=== PATIENT | male | born 1970 | race Caucasian/White ===

== ENCOUNTER 2024-07-28 17:20 | Inpatient (IN) | payer MEDICARE, OTHER ==
[~2024-07-28] VITALS: Ht 172.7 cm; Wt 63.0 kg
[2024-07-28 19:26] LABS: BASOPHILS # (AUTO) 0.1 K/UL (0.0-0.2); BASOPHILS % (AUTO) 0.8 % (0.0-2.0); EOSINOPHILS % (AUTO) 0.5 % (0.0-7.0); HEMATOCRIT 30.1 % (36.7-47.1); HEMOGLOBIN 10.1 g/dL (12.5-16.3); LYMPHOCYTES # (AUTO) 1.7 K/uL (0.8-4.8); MEAN CORPUSCULAR HGB CONC 34 g/dL (32.5-36.3); MEAN CORPUSCULAR VOLUME 89.6 fL (73.0-96.2); MONOCYTES # (AUTO) 0.9 K/uL (0.1-1.30); MONOCYTES % (AUTO) 10.5 % (0.0-11.0); NEUTROPHILS # (AUTO) 5.5 K/uL (1.8-8.9); NEUTROPHILS % (AUTO) 67.2 % (38.5-71.5); PLATELET COUNT (AUTO) 365 K/uL (152-348); RED BLOOD CELL COUNT(AUTO) 3.36 MIL/uL (4.06-5.63); RED CELL DISTRIBUTION WIDTH 16.8 % (12.1-16.2); WHITE BLOOD COUNT (AUTO) 8.1 K/uL (3.6-10.2)
[2024-07-28] MEDS ORDERED: HALOPERIDOL LACTATE 5 MG/1 ML VIAL ONE (19:31)
[2024-07-28 19:32] LABS: *BILIRUBIN,URIN NEGATIVE (NEGATIVE); *BLOOD, URINE NEGATIVE (NEGATIVE); *CLARITY,URINE CLEAR (CLEAR); *COLOR,URINE YELLOW (YELLOW); *KETONES,URINE NEGATIVE (NEGATIVE); *PROTEIN,URINE NEGATIVE (NEGATIVE); *UROBILINOGEN,URINE 0.2 E.U./dl (NORMAL); LEUKOCYTE ESTERASE ,URINE NEGATIVE (NEGATIVE); NITRITE, URINE NEGATIVE (NEGATIVE); PH,URINE 7.5 (5.0-8.0); UGLUCOSE NEGATIVE (NEGATIVE)
[2024-07-28] MEDS ORDERED: LORAZEPAM 2 MG/1 ML VIAL ONE (19:32)
[2024-07-28 19:34] LABS: DIFFERENTIAL COMMENT 1
[2024-07-28 19:36] LABS: CARBON DIOXIDE 30 mmol/L (21-32); CHLORIDE 98 mmol/L (98-107); CREATININE 0.8 mg/dL (0.6-1.3); GLUCOSE 154 mg/dL (74-106); POTASSIUM 4.5 mmol/L (3.5-5.1); SODIUM SERUM 134 mmol/L (136-145); UREA NITROGEN, BLOOD 13 mg/dL (7-18)
[2024-07-28] MEDS: HALOPERIDOL LACTATE 5 MG/1 ML VIAL IM ONE (19:37)
[2024-07-28] MEDS: LORAZEPAM 2 MG/1 ML VIAL IM ONE (19:37)
[2024-07-28 19:45] LABS: ALANINE AMINOTRANSFERASE 10 U/L (16-63); ALBUMIN 2.9 g/dL (3.4-5.0); ALKALINE PHOSPHATASE 114 U/L (50-136); ASPARTATE AMINOTRANSFERASE 8 U/L (15-37); BILIRUBIN,DIRECT 0.1 mg/dL (0.0-0.2); BILIRUBIN,TOTAL 0.2 mg/dL (0.2-1.0); TOTAL PROTEIN, SERUM 7.1 g/dL (6.4-8.2)
[2024-07-28] MEDS ORDERED: REMEDY ESSENTIAL ZINC PASTE 113 GM TP PRN (21:00)
[2024-07-28] MEDS ORDERED: ACETAMINOPHEN 325 MG TABLET PO PRN (21:00)
[2024-07-28] MEDS ORDERED: MAGNESIUM HYDROXIDE 30 ML LIQUID UDC PO PRN (21:00)
[2024-07-28] MEDS ORDERED: DIATR MEGLU/DIATRIZOATE SODIUM 30 ML BOTTLE ONE (22:04)
[2024-07-28] MEDS: ENOXAPARIN SODIUM 40 MG/0.4 ML DISP.SYRIN SQ SCH (23:08)
[2024-07-28] MEDS ORDERED: ENOXAPARIN SODIUM 40 MG/0.4 ML DISP.SYRIN SQ ONE (23:08)
[2024-07-28] MEDS: ASPIRIN 300 MG RECTAL SUPP RC ONE (23:26)
[2024-07-29] MEDS ORDERED: ASPIRIN 81 MG TAB.CHEW ONE (00:25)
[2024-07-29] MEDS: IV NS 1000 ML 1,000 ML IV PRN (00:30)
[2024-07-29] MEDS: ASPIRIN 81 MG TAB.CHEW PO ONE (00:30)
[2024-07-29 05:42] LABS: BASOPHILS # (AUTO) 0.1 K/UL (0.0-0.2); BASOPHILS % (AUTO) 0.8 % (0.0-2.0); EOSINOPHILS # (AUTO) 0.1 K/uL (0.0-0.7); EOSINOPHILS % (AUTO) 1.1 % (0.0-7.0); HEMATOCRIT 33.3 % (36.7-47.1); HEMOGLOBIN 11.3 g/dL (12.5-16.3); LYMPHOCYTES # (AUTO) 1.3 K/uL (0.8-4.8); LYMPHOCYTES % (AUTO) 17.9 % (20.5-51.5); MEAN CORPUSCULAR HEMOGLOBIN 30.3 uug (23.8-33.4); MEAN CORPUSCULAR HGB CONC 34 g/dL (32.5-36.3); MEAN CORPUSCULAR VOLUME 89.4 fL (73.0-96.2); MONOCYTES # (AUTO) 0.8 K/uL (0.1-1.30); NEUTROPHILS % (AUTO) 69.2 % (38.5-71.5); PLATELET COUNT (AUTO) 358 K/uL (152-348); RED BLOOD CELL COUNT(AUTO) 3.73 MIL/uL (4.06-5.63); RED CELL DISTRIBUTION WIDTH 16.8 % (12.1-16.2); WHITE BLOOD COUNT (AUTO) 7.2 K/uL (3.6-10.2)
[2024-07-29 06:01] LABS: CREATININE 0.8 mg/dL (0.6-1.3); MAGNESIUM 1.9 mg/dL (1.8-2.4); PHOSPHOROUS 4.8 mg/dL (2.5-4.9)
[2024-07-29 06:31] LABS: DIFFERENTIAL COMMENT 1
[2024-07-29] MEDS ORDERED: INSU100V39 SQ (06:43)
[2024-07-29] MEDS ORDERED: INSU100V7 SQ (06:43)
[2024-07-29] MEDS ORDERED: CARB200T8 PO (06:43)
[2024-07-29] MEDS ORDERED: LACT10SO7 PO (06:48)
[2024-07-29] MEDS ORDERED: QUET50TA PO ×2 (06:48→10:44)
[2024-07-29] MEDS ORDERED: RISP4TAB70 PO (06:48)
[2024-07-29] MEDS ORDERED: MIDO10TA PO (06:48)
[2024-07-29] MEDS ORDERED: ALPR0.5T PO (06:48)
[2024-07-29] MEDS ORDERED: VALP500S PO (06:48)
[2024-07-29] MEDS ORDERED: ASCO500C18 PO (06:52)
[2024-07-29] MEDS ORDERED: ASPI81TA31 PO (06:52)
[2024-07-29] MEDS ORDERED: ACET325C7 PO (06:52)
[2024-07-29] MEDS: OLANZAPINE 10 MG VIAL IM PRN (09:31)
[2024-07-29] MEDS ORDERED: Medication Not On Formulary EA (Acetaminophen (Tylenol) 2 CAP) PO PRN (10:15)
[2024-07-29] MEDS ORDERED: Medication Not On Formulary EA (Midodrine Hcl 10 MG) PO SCH (10:15)
[2024-07-29] MEDS ORDERED: NA P133E RC (10:44)
[2024-07-29] MEDS ORDERED: MULT-213 PO (10:44)
[2024-07-29] MEDS ORDERED: BISA10SU61 RC (10:44)
[2024-07-29] MEDS ORDERED: MAGN400O6 PO (10:44)
[2024-07-29 11:27] VITALS: BP 101/60; TEMP 97; O2SAT 97
[2024-07-29] MEDS ORDERED: ACETAMINOPHEN 325 MG TABLET PO PRN (11:45)
[2024-07-29 12:33] VITALS: BP 90/61
[2024-07-29] MEDS ORDERED: Medication Not On Formulary EA (Quetiapine Fumarate (Seroquel) 50 MG) PO PRN (13:00)
[2024-07-29] MEDS ORDERED: DEXTROSE 50% 50 ML DISP.SYRIN IV PRN (13:15)
[2024-07-29] MEDS: QUETIAPINE FUMARATE 25 MG TABLET PO PRN (13:36)
[2024-07-29] MEDS: QUETIAPINE FUMARATE 25 MG TABLET PO SCH (13:36)
[2024-07-29 16:00] VITALS: BP 97/64; TEMP 97.2; O2SAT 97
[2024-07-29] MEDS: CEFTRIAXONE 1 G in IV DEXTROSE 5% 50 ML IV SCH (16:03)
[2024-07-29] MEDS: MEDIHONEY= THERAHONEY 1.5 OZ TUBE TOP SCH (16:04)
[2024-07-29] MEDS: BLOOD SUGAR DIAGNOSTIC 1 EACH STRIP VI SCH (16:05)
[2024-07-29] MEDS ORDERED: Medication Not On Formulary EA (Quetiapine Fumarate (Seroquel) 50 MG) PO SCH (17:00)
[2024-07-29] MEDS ORDERED: Medication Not On Formulary EA (Valproate Sodium (Valproic Acid) 500 MG) PO SCH (17:00)
[2024-07-29] MEDS: risperiDONE 2 MG TABLET PO SCH (17:07)
[2024-07-29] MEDS: VALPROIC ACID 250 MG/5 ML LIQUID UDC PO SCH (17:07)
[2024-07-29] MEDS: CARBAMAZEPINE 200 MG TABLET PO SCH (17:07)
[2024-07-29] MEDS: LACTULOSE 20 G/30 ML LIQUID UDC PO SCH (17:07)
[2024-07-29] MEDS: INSULIN REGULAR, HUMAN 1000 UNIT/10 ML VIAL SQ PRN (17:42)
[2024-07-29 19:44] VITALS: BP 92/58; TEMP 98; O2SAT 96
[2024-07-29] MEDS: DOXYCYCLINE HYCLATE IV 100 MG in IV DEXTROSE 5% 100 ML IV SCH (20:05)
[2024-07-30] VITALS (8 sets, daily range): BP systolic 92–103; BP diastolic 46–67; TEMP 97.4–98.7; O2SAT 93–100
[2024-07-30] MEDS: ASPIRIN 81 MG TAB.CHEW PO SCH (08:31)
[2024-07-30] MEDS: MULTIVITAMINS,THERAPEUTIC TABLET PO SCH (08:32)
[2024-07-30] MEDS: ASCORBIC ACID 500 MG TABLET PO SCH (08:32)
[2024-07-30] MEDS ORDERED: Medication Not On Formulary EA (Multivitamins W-Minerals (Multivitamin With Minerals) 1 PO SCH (09:00)
[2024-07-30] MEDS ORDERED: Medication Not On Formulary EA (Ascorbic Acid (Vitamin C) 500 MG) PO SCH (09:00)
[2024-07-30] MEDS ORDERED: ACET325T53 PO ×2 (10:12)
[2024-07-30] MEDS ORDERED: MIDO5TAB4 PO (10:12)
[2024-07-30] MEDS ORDERED: ASCO500T21 PO (10:12)
[2024-07-30] MEDS ORDERED: DOXY100C5 PO (10:12)
[2024-07-30] MEDS ORDERED: VALP250S22 PO (10:12)
[2024-07-30] MEDS ORDERED: MULT-24 PO (10:12)
[2024-07-30] MEDS ORDERED: RISP2TAB5 PO (10:12)
[2024-07-30] MEDS ORDERED: QUET25TA36 PO ×2 (10:12)
[2024-07-30] MEDS: ONDANSETRON 4 MG/2 ML VIAL IV PRN (12:30)
[2024-07-30] MEDS: ALBUTEROL SULFATE 2.5 MG/3 ML NEBU NEB SCH (14:11)
[2024-07-30] MEDS: IPRATROPIUM BROMIDE 0.5 MG/2.5 ML NEBU NEB SCH (14:11)
[2024-07-30] MEDS: DOXYCYCLINE HYCLATE 100 MG TABLET PO SCH (20:32)
[2024-07-31] VITALS (11 sets, daily range): BP systolic 83–106; BP diastolic 48–66; TEMP 97.2–98.6; O2SAT 98–99
[2024-07-31] MEDS: MIDODRINE HCL 5 MG TABLET PO PRN (06:16)
[2024-07-31] MEDS ORDERED: ALBU2.5V7 NEB (11:14)
[2024-07-31] MEDS ORDERED: IPRA0.2S6 NEB (11:14)
[2024-07-31] MEDS: ALPRAZOLAM 0.5 MG TABLET PO PRN (12:13)
[2024-08-01] VITALS (9 sets, daily range): BP systolic 85–104; BP diastolic 53–70; TEMP 98.3–98.7; O2SAT 97–100
[2024-08-02] VITALS (10 sets, daily range): BP systolic 96–106; BP diastolic 64–74; TEMP 97.6–99.5; O2SAT 97–100
[2024-08-03] VITALS (10 sets, daily range): BP systolic 84–112; BP diastolic 47–70; TEMP 97.6–99; O2SAT 98–100
[2024-08-03 06:46] LABS: BASOPHILS # (AUTO) 0.1 K/UL (0.0-0.2); BASOPHILS % (AUTO) 0.8 % (0.0-2.0); EOSINOPHILS # (AUTO) 0.1 K/uL (0.0-0.7); EOSINOPHILS % (AUTO) 1.1 % (0.0-7.0); HEMATOCRIT 29.6 % (36.7-47.1); HEMOGLOBIN 9.9 g/dL (12.5-16.3); LYMPHOCYTES # (AUTO) 1.1 K/uL (0.8-4.8); LYMPHOCYTES % (AUTO) 14.9 % (20.5-51.5); MEAN CORPUSCULAR HEMOGLOBIN 30.1 uug (23.8-33.4); MEAN CORPUSCULAR HGB CONC 34 g/dL (32.5-36.3); MEAN CORPUSCULAR VOLUME 89.6 fL (73.0-96.2); MONOCYTES # (AUTO) 0.7 K/uL (0.1-1.30); MONOCYTES % (AUTO) 10.2 % (0.0-11.0); NEUTROPHILS # (AUTO) 5.2 K/uL (1.8-8.9); PLATELET COUNT (AUTO) 327 K/uL (152-348); RED CELL DISTRIBUTION WIDTH 16.9 % (12.1-16.2); WHITE BLOOD COUNT (AUTO) 7.1 K/uL (3.6-10.2)
[2024-08-03 06:57] LABS: DIFFERENTIAL COMMENT 1
[2024-08-03 07:05] LABS: CALCIUM 9.1 mg/dL (8.5-10.1); CREATININE 0.9 mg/dL (0.6-1.3); POTASSIUM 4.7 mmol/L (3.5-5.1)
[2024-08-03] MEDS ORDERED: CEFT1VIA15 IV (11:14)
[2024-08-04] VITALS (10 sets, daily range): BP systolic 89–100; BP diastolic 50–65; TEMP 97.8–98.5; O2SAT 97–100
[2024-08-04 14:59] LABS: THYROID STIMULATING HORMONE 2.379 mIU/mL (0.358-3.740)
[2024-08-05 06:05] VITALS: BP 91/65; TEMP 97.4; O2SAT 97
[2024-08-05 11:18] VITALS: BP 96/64; TEMP 97.7; O2SAT 99
[2024-08-06] MEDS ORDERED: ARGININE/GLUTAMINE/CALCIUM BMB 1 EACH POWD.PACK PO SCH (09:00)
== END 2024-08-05 17:00 | DRG 981 ==
LOC: ER 17:20 → TELE3 07-29 08:02 → MEDSURG3 07-29 19:45
PROVIDERS: ADMIT Nurse Practitioner Acute Care; ATTEND Nurse Practitioner Acute Care
PROC: 0DH67UZ Insertion of Feeding Device into Stomach, Via Natural or Artificial Opening (ICD-10-PCS; 2024-07-29)
PROC: 0KBP0ZZ Excision of Left Hip Muscle, Open Approach (ICD-10-PCS; principal; 2024-08-03)
PROC: 0KBN0ZZ Excision of Right Hip Muscle, Open Approach (ICD-10-PCS; 2024-08-03)
DX: J15.69 Pneumonia due to other Gram-negative bacteria (principal); G93.41 Metabolic encephalopathy; L89.154 Pressure ulcer of sacral region, stage 4; I21.A1 Myocardial infarction type 2; Z43.1 Encounter for attention to gastrostomy; J44.0 Chronic obstructive pulmonary disease with (acute) lower respiratory infection; E44.0 Moderate protein-calorie malnutrition; I10 Essential (primary) hypertension; E78.5 Hyperlipidemia, unspecified; E88.09 Other disorders of plasma-protein metabolism, not elsewhere classified; Z68.21 Body mass index [BMI] 21.0-21.9, adult; F25.0 Schizoaffective disorder, bipolar type; G40.909 Epilepsy, unspecified, not intractable, without status epilepticus; R62.7 Adult failure to thrive; K76.9 Liver disease, unspecified; Z79.899 Other long term (current) drug therapy; N40.0 Benign prostatic hyperplasia without lower urinary tract symptoms; Z89.422 Acquired absence of other left toe(s); E11.9 Type 2 diabetes mellitus without complications; Z79.82 Long term (current) use of aspirin; Z79.4 Long term (current) use of insulin; F41.9 Anxiety disorder, unspecified; K21.9 Gastro-esophageal reflux disease without esophagitis
CPT/HCPCS: 36415; 71045; 83735; 83921; 84100; 84443; 84484; 85025; 94640; 94664; A6213; G0378; J0696; J1630; J1650; J1815; J2060; J2358; J2405; J3490; J3590; J7040; Q9963

== ENCOUNTER 2024-08-09 17:10 | Inpatient (IN) | payer MEDICARE, OTHER ==
[~2024-08-09] VITALS: Ht 172.7 cm; Wt 60.8 kg
[~2024-08-09 17:10] MED LIST: ACET325C7 PO; ACET325T53 PO; ALBU2.5V7 NEB; ALPR0.5T PO; ASCO500C18 PO; ASCO500T21 PO; ASPI81TA31 PO; BISA10SU61 RC; CARB200T8 PO; CEFT1VIA15 IV; DOXY100C5 PO; INSU100V39 SQ; INSU100V7 SQ; IPRA0.2S6 NEB; LACT10SO7 PO; MAGN400O6 PO; MIDO10TA PO; MIDO5TAB4 PO; MULT-213 PO; MULT-24 PO; NA P133E RC; QUET25TA36 PO; QUET50TA PO; RISP2TAB5 PO; RISP4TAB70 PO; VALP250S22 PO; VALP500S PO
[2024-08-09 19:33] LABS: *BILIRUBIN,URIN NEGATIVE (NEGATIVE); *BLOOD, URINE NEGATIVE (NEGATIVE); *CLARITY,URINE CLEAR (CLEAR); *COLOR,URINE YELLOW (YELLOW); *KETONES,URINE TRACE (NEGATIVE); *PROTEIN,URINE NEGATIVE (NEGATIVE); *UROBILINOGEN,URINE 0.2 E.U./dl (NORMAL); LEUKOCYTE ESTERASE ,URINE NEGATIVE (NEGATIVE); NITRITE, URINE NEGATIVE (NEGATIVE); UGLUCOSE 2+ (NEGATIVE)
[2024-08-09 19:34] LABS: RBC,URINE 0-3 /HPF (0-3); WBC,URINE 0-3 /HPF (0-3)
[2024-08-09 19:34] LABS: BASOPHILS # (AUTO) 0.1 K/UL (0.0-0.2); BASOPHILS % (AUTO) 0.9 % (0.0-2.0); EOSINOPHILS # (AUTO) 0.2 K/uL (0.0-0.7); EOSINOPHILS % (AUTO) 1.9 % (0.0-7.0); HEMOGLOBIN 9.8 g/dL (12.5-16.3); LYMPHOCYTES # (AUTO) 1.4 K/uL (0.8-4.8); LYMPHOCYTES % (AUTO) 17.9 % (20.5-51.5); MEAN CORPUSCULAR HEMOGLOBIN 30.7 uug (23.8-33.4); MEAN CORPUSCULAR HGB CONC 34 g/dL (32.5-36.3); MEAN CORPUSCULAR VOLUME 90.8 fL (73.0-96.2); MONOCYTES % (AUTO) 13.2 % (0.0-11.0); NEUTROPHILS # (AUTO) 5.2 K/uL (1.8-8.9); NEUTROPHILS % (AUTO) 66.1 % (38.5-71.5); PLATELET COUNT (AUTO) 352 K/uL (152-348); RED CELL DISTRIBUTION WIDTH 16.4 % (12.1-16.2); WHITE BLOOD COUNT (AUTO) 7.9 K/uL (3.6-10.2)
[2024-08-09 19:35] LABS: DIFFERENTIAL COMMENT 1
[2024-08-09 19:42] LABS: *AMPHETAMINE, URINE NEGATIVE (NEGATIVE); *BARBITURATE, URINE NEGATIVE (NEGATIVE); *BENZODIAZEPINE, URINE POSITIVE (NEGATIVE); *CANNABINOID, URINE NEGATIVE (NEGATIVE); *COCCAINE, URINE NEGATIVE (NEGATIVE); *OPIATE, URINE NEGATIVE (NEGATIVE); *PHENCYCLIDINE SCREEN,URINE NEGATIVE (NEGATIVE); FENTANYL, URINE NEGATIVE (NEGATIVE)
[2024-08-09 19:52] LABS: ETHANOL < 3 MG/DL (0-10)
[2024-08-09 20:05] LABS: ALANINE AMINOTRANSFERASE 15 U/L (16-63); ALBUMIN 3.2 g/dL (3.4-5.0); ALKALINE PHOSPHATASE 113 U/L (50-136); ASPARTATE AMINOTRANSFERASE 8 U/L (15-37); BILIRUBIN,DIRECT 0.1 mg/dL (0.0-0.2); BILIRUBIN,TOTAL 0.2 mg/dL (0.2-1.0); CALCIUM 8.8 mg/dL (8.5-10.1); CARBON DIOXIDE 26 mmol/L (21-32); CHLORIDE 96 mmol/L (98-107); CREATININE 1.1 mg/dL (0.6-1.3); GLUCOSE 356 mg/dL (74-106); POTASSIUM 4.3 mmol/L (3.5-5.1); SODIUM SERUM 134 mmol/L (136-145); UREA NITROGEN, BLOOD 19 mg/dL (7-18)
[2024-08-10] MEDS ORDERED: DEXTROSE 50% 50 ML DISP.SYRIN IV PRN (00:30)
[2024-08-10] MEDS ORDERED: MAGNESIUM HYDROXIDE 30 ML LIQUID UDC PO PRN (00:30)
[2024-08-10] MEDS ORDERED: ONDANSETRON 4 MG/2 ML VIAL IV PRN (00:30)
[2024-08-10] MEDS ORDERED: HYDROCODONE/APAP 5-325MG TABLET PO PRN (00:30)
[2024-08-10] MEDS ORDERED: MORPHINE SULFATE 2 MG/1 ML DISP.SYRIN IVP PRN (00:30)
[2024-08-10] MEDS ORDERED: ACETAMINOPHEN 325 MG TABLET PO PRN (00:30)
[2024-08-10] MEDS ORDERED: hydrALAZINE HCL 20 MG/1 ML VIAL IV PRN (00:30)
[2024-08-10 02:30] VITALS: BP 90/67; TEMP 98; O2SAT 95
[2024-08-10 05:14] VITALS: BP 98/68; TEMP 97.9; O2SAT 98
[2024-08-10] MEDS: BLOOD SUGAR DIAGNOSTIC 1 EACH STRIP VI SCH (07:03)
[2024-08-10] MEDS: INSULIN REGULAR, HUMAN 1000 UNIT/10 ML VIAL SQ PRN (08:07)
[2024-08-10] MEDS: risperiDONE 2 MG TABLET PO SCH (08:36)
[2024-08-10] MEDS: CARBAMAZEPINE 200 MG TABLET PO SCH (08:36)
[2024-08-10] MEDS: QUETIAPINE FUMARATE 25 MG TABLET PO SCH (08:36)
[2024-08-10] MEDS: ASPIRIN 81 MG TAB.CHEW PO SCH (08:36)
[2024-08-10] MEDS: VALPROIC ACID 250 MG/5 ML LIQUID UDC PO SCH (08:37)
[2024-08-10] MEDS: HEPARIN SODIUM,PORCINE 5,000 UNITS/ML VIAL SQ SCH (08:39)
[2024-08-10] MEDS ORDERED: ONDA4TAB5 PO (10:10)
[2024-08-10 11:00] VITALS: BP 101/72; TEMP 98; O2SAT 94
[2024-08-10 16:05] VITALS: BP 98/66; TEMP 97.9; O2SAT 98
[2024-08-10] MEDS: ARGININE/GLUTAMINE/CALCIUM BMB 1 EACH POWD.PACK PO SCH (16:37)
[2024-08-10 19:00] VITALS: BP 100/66; TEMP 97.6; O2SAT 95
[2024-08-10] MEDS: INSULIN REGULAR, HUMAN 300 UNITS/3 ML VIAL SQ PRN (20:13)
[2024-08-11 06:00] VITALS: BP 100/65; TEMP 98.2; O2SAT 100
[2024-08-11 07:07] LABS: BASOPHILS # (AUTO) 0.1 K/UL (0.0-0.2); BASOPHILS % (AUTO) 0.6 % (0.0-2.0); EOSINOPHILS # (AUTO) 0.2 K/uL (0.0-0.7); HEMATOCRIT 31.5 % (36.7-47.1); HEMOGLOBIN 10.6 g/dL (12.5-16.3); LYMPHOCYTES # (AUTO) 1.3 K/uL (0.8-4.8); LYMPHOCYTES % (AUTO) 14.2 % (20.5-51.5); MEAN CORPUSCULAR HEMOGLOBIN 30.6 uug (23.8-33.4); MEAN CORPUSCULAR HGB CONC 34 g/dL (32.5-36.3); MONOCYTES # (AUTO) 0.8 K/uL (0.1-1.30); MONOCYTES % (AUTO) 8.8 % (0.0-11.0); NEUTROPHILS # (AUTO) 6.7 K/uL (1.8-8.9); NEUTROPHILS % (AUTO) 74.4 % (38.5-71.5); PLATELET COUNT (AUTO) 377 K/uL (152-348); RED BLOOD CELL COUNT(AUTO) 3.47 MIL/uL (4.06-5.63); RED CELL DISTRIBUTION WIDTH 16.7 % (12.1-16.2); WHITE BLOOD COUNT (AUTO) 8.9 K/uL (3.6-10.2)
[2024-08-11 07:20] LABS: DIFFERENTIAL COMMENT 1
[2024-08-11 07:23] LABS: BILIRUBIN,TOTAL 0.3 mg/dL (0.2-1.0); CALCIUM 9.1 mg/dL (8.5-10.1); CREATININE 0.8 mg/dL (0.6-1.3); PHOSPHOROUS 3.7 mg/dL (2.5-4.9); POTASSIUM 4.8 mmol/L (3.5-5.1); TOTAL PROTEIN, SERUM 6.9 g/dL (6.4-8.2)
[2024-08-11 10:57] LABS: EOSINOPHILS % (MANUAL) 3 % (0-8); LYMPHOCYTES % (MANUAL) 14 % (20-40); MONOCYTES % (MANUAL) 9 % (2-10); NEUTROPHILS % (MANUAL) 74 % (42-75)
[2024-08-11 10:58] LABS: PLATELET ESTIMATE INCREASED
[2024-08-11 11:15] VITALS: BP 128/83; TEMP 98; O2SAT 99
[2024-08-11] MEDS: diphenhydrAMINE 50 MG/1 ML VIAL IM ONE (12:42)
[2024-08-11] MEDS: OLANZAPINE 10 MG VIAL IM ONE (12:42)
[2024-08-11 15:44] VITALS: BP 110/68; TEMP 98; O2SAT 100
[2024-08-11 17:21] LABS: THYROID STIMULATING HORMONE 1.896 mIU/mL (0.358-3.740)
[2024-08-11 19:00] VITALS: BP 98/54; TEMP 98.3; O2SAT 98
[2024-08-11] MEDS: MIDODRINE HCL 5 MG TABLET PO PRN (21:01)
[2024-08-12 06:00] VITALS: BP 104/73; TEMP 97.9; O2SAT 100
[2024-08-12] MEDS: LORAZEPAM 1 MG TABLET PO PRN (06:09)
[2024-08-12 07:02] LABS: AMMONIA < 10 umol/L (11-32)
[2024-08-12 07:04] LABS: VALPROIC ACID 28 ug/mL (50-100)
[2024-08-12 11:20] VITALS: BP 101/66; TEMP 97.8; O2SAT 100
[2024-08-12 15:46] VITALS: BP 90/55; TEMP 97.9; O2SAT 99
[2024-08-12 15:56] VITALS: BP 90/55; TEMP 97.8; O2SAT 99
[2024-08-12 19:52] VITALS: BP 81/53; TEMP 97.5; O2SAT 99
[2024-08-12] MEDS: VALPROIC ACID 250 MG/5 ML LIQUID UDC PO SCH (20:18)
[2024-08-13 04:41] VITALS: BP 88/62; TEMP 97.9; O2SAT 98
[2024-08-13 16:00] VITALS: BP 138/76; TEMP 97.8; O2SAT 97
[2024-08-13 19:00] VITALS: BP 95/65; TEMP 98.1; O2SAT 99
[2024-08-14 05:59] VITALS: BP 103/74; TEMP 97.8; O2SAT 100
[2024-08-14 11:08] VITALS: BP 98/60; TEMP 98.6; O2SAT 99
[2024-08-14] MEDS: QUETIAPINE FUMARATE 25 MG TABLET PO PRN (13:50)
[2024-08-14 16:30] VITALS: BP 104/69; TEMP 97.8; O2SAT 98
[2024-08-14 19:09] VITALS: BP 100/68; TEMP 98.3; O2SAT 95
[2024-08-15 06:03] VITALS: BP 98/65; TEMP 97.8; O2SAT 99
[2024-08-15 11:34] VITALS: BP 104/72; TEMP 97.5; O2SAT 100
[2024-08-15 15:44] VITALS: BP 111/71; TEMP 98.8; O2SAT 100
[2024-08-15 19:45] VITALS: BP 100/67; TEMP 98; O2SAT 99
[2024-08-16 09:29] VITALS: BP 95/63; TEMP 98.2; O2SAT 100
[2024-08-16 11:41] VITALS: BP 95/62; TEMP 97.6; O2SAT 99
[2024-08-16 15:42] VITALS: BP 110/70; TEMP 98; O2SAT 99
[2024-08-17 06:47] VITALS: BP 97/56; TEMP 97.8
[2024-08-17 11:35] VITALS: BP 106/69; TEMP 97.9; O2SAT 99
[2024-08-17 15:43] VITALS: BP 125/73; TEMP 97.6; O2SAT 98
[2024-08-17 19:30] VITALS: BP 107/66; TEMP 99.2; O2SAT 95
[2024-08-18 06:05] VITALS: BP 106/66; TEMP 98.5; O2SAT 99
[2024-08-18 09:22] LABS: BASOPHILS % (AUTO) 0.4 % (0.0-2.0); EOSINOPHILS % (AUTO) 0.6 % (0.0-7.0); MEAN CORPUSCULAR HEMOGLOBIN 30.7 uug (23.8-33.4); MEAN CORPUSCULAR HGB CONC 33 g/dL (32.5-36.3); MEAN CORPUSCULAR VOLUME 92.3 fL (73.0-96.2); MONOCYTES # (AUTO) 0.8 K/uL (0.1-1.30); NEUTROPHILS # (AUTO) 5.7 K/uL (1.8-8.9); PLATELET COUNT (AUTO) 270 K/uL (152-348); RED BLOOD CELL COUNT(AUTO) 3.25 MIL/uL (4.06-5.63); RED CELL DISTRIBUTION WIDTH 16.2 % (12.1-16.2); WHITE BLOOD COUNT (AUTO) 7.7 K/uL (3.6-10.2)
[2024-08-18 09:31] LABS: DIFFERENTIAL COMMENT 1
[2024-08-18 09:55] LABS: ALBUMIN 3.1 g/dL (3.4-5.0); BILIRUBIN,TOTAL 0.3 mg/dL (0.2-1.0); CALCIUM 9.3 mg/dL (8.5-10.1); MAGNESIUM 2.2 mg/dL (1.8-2.4); PHOSPHOROUS 3.7 mg/dL (2.5-4.9); POTASSIUM 5.1 mmol/L (3.5-5.1); TOTAL PROTEIN, SERUM 6.7 g/dL (6.4-8.2)
[2024-08-18 11:46] VITALS: BP 95/56; TEMP 98.6; O2SAT 98
[2024-08-18] MEDS: GLIMEPIRIDE 2 MG TABLET PO SCH (12:12)
[2024-08-18 13:06] VITALS: BP 105/60; TEMP 98.5; O2SAT 98
[2024-08-18] MEDS ORDERED: ACET325T53 PO (14:05)
[2024-08-18] MEDS ORDERED: MIDO5TAB4 PO (14:05)
[2024-08-18] MEDS ORDERED: VALP250S22 PO ×2 (14:05)
[2024-08-18] MEDS ORDERED: LORA-259 PO (14:05)
[2024-08-18] MEDS ORDERED: Blood Sugar Diagnostic VI (14:05)
[2024-08-18] MEDS ORDERED: NUTR1PAC14 PO (14:05)
[2024-08-18] MEDS ORDERED: GLIM2TAB PO (14:05)
[2024-08-18] MEDS ORDERED: MULT-1045 PO (14:05)
[2024-08-18] MEDS ORDERED: QUET25TA36 PO ×2 (14:05)
[2024-08-18] MEDS ORDERED: MAGN400O6 PO (14:05)
[2024-08-18] MEDS ORDERED: DEXT50DI8 IV (14:05)
[2024-08-18] MEDS ORDERED: RISP2TAB5 PO (14:05)
[2024-08-18] MEDS ORDERED: ATOR10TA PO (14:21)
[2024-08-18] MEDS ORDERED: FERR-56 PO (14:21)
== END 2024-08-18 15:25 | DRG 579 ==
LOC: ER 17:10 → MEDSURG3 08-10 00:25
PROVIDERS: ADMIT Internal Medicine
PROC: 0KBP0ZZ Excision of Left Hip Muscle, Open Approach (ICD-10-PCS; principal; 2024-08-12)
PROC: 0KBN0ZZ Excision of Right Hip Muscle, Open Approach (ICD-10-PCS; 2024-08-12)
DX: L89.154 Pressure ulcer of sacral region, stage 4 (principal); G93.41 Metabolic encephalopathy; I50.32 Chronic diastolic (congestive) heart failure; J84.9 Interstitial pulmonary disease, unspecified; E44.0 Moderate protein-calorie malnutrition; E11.65 Type 2 diabetes mellitus with hyperglycemia; R62.7 Adult failure to thrive; F25.0 Schizoaffective disorder, bipolar type; G40.909 Epilepsy, unspecified, not intractable, without status epilepticus; D50.9 Iron deficiency anemia, unspecified; E78.5 Hyperlipidemia, unspecified; G90.89 Other disorders of autonomic nervous system; I25.2 Old myocardial infarction; I11.0 Hypertensive heart disease with heart failure; K74.60 Unspecified cirrhosis of liver; Z79.4 Long term (current) use of insulin; Z79.899 Other long term (current) drug therapy; N40.0 Benign prostatic hyperplasia without lower urinary tract symptoms; I95.1 Orthostatic hypotension; Z68.20 Body mass index [BMI] 20.0-20.9, adult; I25.10 Atherosclerotic heart disease of native coronary artery without angina pectoris; J44.9 Chronic obstructive pulmonary disease, unspecified; M62.81 Muscle weakness (generalized); R26.9 Unspecified abnormalities of gait and mobility; F91.9 Conduct disorder, unspecified
CPT/HCPCS: 36415; 70450; 80164; 83550; 83735; 83921; 84100; 84443; 85025; 93005; A4663; A6213; G0378; G0480; J1644; J1815

== ENCOUNTER 2024-11-01 18:15 | Inpatient (IN) | payer MEDICARE, OTHER ==
[~2024-11-01] VITALS: Ht 170.2 cm; Wt 68.5 kg
[~2024-11-01 18:15] MED LIST changes: -ACET325C7 PO; -ALBU2.5V7 NEB; -ALPR0.5T PO; -ASCO500T21 PO; +ATOR10TA PO; -BISA10SU61 RC; +Blood Sugar Diagnostic VI; -CEFT1VIA15 IV; +DEXT50DI8 IV; -DOXY100C5 PO; +FERR-56 PO; +GLIM2TAB PO; -INSU100V39 SQ; -INSU100V7 SQ; -IPRA0.2S6 NEB; -LACT10SO7 PO; +LORA-259 PO; -MIDO10TA PO; +MULT-1045 PO; -MULT-24 PO; -NA P133E RC; +NUTR1PAC14 PO; -QUET50TA PO; -RISP4TAB70 PO; -VALP500S PO
[2024-11-01] MEDS ORDERED: QUET100T PO ×2 (18:48)
[2024-11-01] MEDS ORDERED: ALBU2.5V38 NEB (18:48)
[2024-11-01] MEDS ORDERED: IPRA0.2S48 NEB (18:48)
[2024-11-01] MEDS ORDERED: MAG355OR18 PO (18:48)
[2024-11-01] MEDS ORDERED: MIDO5TAB5 PO (18:48)
[2024-11-01] MEDS ORDERED: BISA10SU61 RC (18:48)
[2024-11-01] MEDS ORDERED: ONDA4TAB5 PO (18:48)
[2024-11-01] MEDS ORDERED: GLUC1KIT IM (18:48)
[2024-11-01] MEDS ORDERED: LACT10SO58 PO (18:48)
[2024-11-01] MEDS ORDERED: GUAI-1189 PO (18:48)
[2024-11-01] MEDS ORDERED: NA P133E RC (18:48)
[2024-11-01 18:59] LABS: *BILIRUBIN,URIN NEGATIVE (NEGATIVE); *BLOOD, URINE NEGATIVE (NEGATIVE); *CLARITY,URINE CLEAR (CLEAR); *COLOR,URINE YELLOW (YELLOW); *KETONES,URINE NEGATIVE (NEGATIVE); *PROTEIN,URINE NEGATIVE (NEGATIVE); *UROBILINOGEN,URINE 0.2 E.U./dl (NORMAL); LEUKOCYTE ESTERASE ,URINE NEGATIVE (NEGATIVE); NITRITE, URINE NEGATIVE (NEGATIVE); UGLUCOSE NEGATIVE (NEGATIVE)
[2024-11-01 19:00] LABS: BASOPHILS % (AUTO) 0.5 % (0.0-2.0); DIFFERENTIAL COMMENT 1; EOSINOPHILS # (AUTO) 0.1 K/uL (0.0-0.7); EOSINOPHILS % (AUTO) 0.8 % (0.0-7.0); HEMATOCRIT 44.5 % (36.7-47.1); HEMOGLOBIN 14.7 g/dL (12.5-16.3); LYMPHOCYTES # (AUTO) 1.8 K/uL (0.8-4.8); LYMPHOCYTES % (AUTO) 18.6 % (20.5-51.5); MEAN CORPUSCULAR HEMOGLOBIN 29.3 uug (23.8-33.4); MEAN CORPUSCULAR HGB CONC 33 g/dL (32.5-36.3); MEAN CORPUSCULAR VOLUME 88.5 fL (73.0-96.2); MONOCYTES # (AUTO) 0.7 K/uL (0.1-1.30); MONOCYTES % (AUTO) 7.1 % (0.0-11.0); NEUTROPHILS # (AUTO) 7.1 K/uL (1.8-8.9); PLATELET COUNT (AUTO) 249 K/uL (152-348); RED BLOOD CELL COUNT(AUTO) 5.03 MIL/uL (4.06-5.63); RED CELL DISTRIBUTION WIDTH 15.8 % (12.1-16.2); WHITE BLOOD COUNT (AUTO) 9.7 K/uL (3.6-10.2)
[2024-11-01 19:07] LABS: *AMPHETAMINE, URINE NEGATIVE (NEGATIVE); *BARBITURATE, URINE NEGATIVE (NEGATIVE); *BENZODIAZEPINE, URINE NEGATIVE (NEGATIVE); *CANNABINOID, URINE NEGATIVE (NEGATIVE); *COCCAINE, URINE NEGATIVE (NEGATIVE); *OPIATE, URINE NEGATIVE (NEGATIVE); *PHENCYCLIDINE SCREEN,URINE NEGATIVE (NEGATIVE); FENTANYL, URINE NEGATIVE (NEGATIVE)
[2024-11-01 19:15] LABS: CALCIUM 9.4 mg/dL (8.5-10.1); CARBON DIOXIDE 26 mmol/L (21-32); CHLORIDE 101 mmol/L (98-107); GLUCOSE 198 mg/dL (74-106); POTASSIUM 4.4 mmol/L (3.5-5.1); SODIUM SERUM 137 mmol/L (136-145); UREA NITROGEN, BLOOD 11 mg/dL (7-18)
[2024-11-01 19:16] LABS: ETHANOL < 3 MG/DL (0-10)
[2024-11-01 19:18] LABS: ALANINE AMINOTRANSFERASE 16 U/L (16-63); ALBUMIN 3.4 g/dL (3.4-5.0); ALKALINE PHOSPHATASE 157 U/L (50-136); ASPARTATE AMINOTRANSFERASE 15 U/L (15-37); BILIRUBIN,DIRECT 0.2 mg/dL (0.0-0.2); BILIRUBIN,TOTAL 0.4 mg/dL (0.2-1.0); CREATINE KINASE, TOTAL 439 U/L (39-308); TOTAL PROTEIN, SERUM 7.2 g/dL (6.4-8.2)
[2024-11-01 19:20] LABS: ACETAMINOPHEN < 2.0 ug/mL (10-30)
[2024-11-01] MEDS ORDERED: ONDANSETRON 4 MG/2 ML VIAL IV PRN (22:15)
[2024-11-01] MEDS ORDERED: REMEDY ESSENTIAL ZINC PASTE 113 GM TP PRN (22:15)
[2024-11-01] MEDS ORDERED: MAGNESIUM HYDROXIDE 30 ML LIQUID UDC PO PRN (22:15)
[2024-11-01] MEDS ORDERED: ACETAMINOPHEN 325 MG TABLET PO PRN (22:15)
[2024-11-01 23:40] VITALS: BP 106/72; TEMP 97.8; O2SAT 98
[2024-11-02] VITALS (7 sets, daily range): BP systolic 103–129; BP diastolic 66–92; TEMP 97.8–98.9; O2SAT 97–100
[2024-11-02] MEDS: PANTOPRAZOLE SODIUM 40 MG TABLET.DR PO SCH (06:32)
[2024-11-02 07:02] LABS: CALCIUM 9.2 mg/dL (8.5-10.1); CREATININE 1.1 mg/dL (0.6-1.3); MAGNESIUM 1.9 mg/dL (1.8-2.4); PHOSPHOROUS 3.6 mg/dL (2.5-4.9)
[2024-11-02 07:03] LABS: BASOPHILS # (AUTO) 0.1 K/UL (0.0-0.2); BASOPHILS % (AUTO) 0.8 % (0.0-2.0); EOSINOPHILS # (AUTO) 0.2 K/uL (0.0-0.7); EOSINOPHILS % (AUTO) 2.7 % (0.0-7.0); HEMOGLOBIN 14.5 g/dL (12.5-16.3); LYMPHOCYTES # (AUTO) 1.5 K/uL (0.8-4.8); LYMPHOCYTES % (AUTO) 25.5 % (20.5-51.5); MEAN CORPUSCULAR HEMOGLOBIN 29.4 uug (23.8-33.4); MEAN CORPUSCULAR HGB CONC 33 g/dL (32.5-36.3); MONOCYTES # (AUTO) 0.6 K/uL (0.1-1.30); MONOCYTES % (AUTO) 9.9 % (0.0-11.0); NEUTROPHILS # (AUTO) 3.7 K/uL (1.8-8.9); NEUTROPHILS % (AUTO) 61.1 % (38.5-71.5); PLATELET COUNT (AUTO) 267 K/uL (152-348); RED BLOOD CELL COUNT(AUTO) 4.94 MIL/uL (4.06-5.63); RED CELL DISTRIBUTION WIDTH 16.1 % (12.1-16.2)
[2024-11-02 07:04] LABS: DIFFERENTIAL COMMENT 1
[2024-11-02 07:14] LABS: THYROID STIMULATING HORMONE 1.615 mIU/mL (0.358-3.740)
[2024-11-02] MEDS: ENOXAPARIN SODIUM 40 MG/0.4 ML DISP.SYRIN SQ SCH (08:28)
[2024-11-02] MEDS: NICOTINE 21 MG/24HR PATCH TD SCH ×2 (12:45→13:16)
[2024-11-02] MEDS ORDERED: ALBUTEROL SULFATE 2.5 MG/ 0.5 ML NEBU NEB PRN (12:45)
[2024-11-02] MEDS ORDERED: LORAZEPAM 0.5 MG TABLET PO PRN (12:45)
[2024-11-02] MEDS ORDERED: IPRATROPIUM BROMIDE 0.5 MG/2.5 ML NEBU NEB PRN (12:45)
[2024-11-02] MEDS ORDERED: ASPI-1101 PO (13:03)
[2024-11-02] MEDS ORDERED: LORA-259 PO (13:09)
[2024-11-02] MEDS ORDERED: DEXT15SY3 PO (13:10)
[2024-11-02] MEDS ORDERED: INSU100V7 SQ (13:11)
[2024-11-02] MEDS: ASPIRIN EC 81 MG TABLET.DR PO SCH (13:16)
[2024-11-02] MEDS: levoFLOXacin 500 MG/D5W 500 MG in PREMIXED 1 EACH IV SCH (13:17)
[2024-11-02] MEDS: FLUTICASONE/VILANTEROL 1 EACH BLST.W.DEV INH SCH (13:17)
[2024-11-02] MEDS ORDERED: risperiDONE 1 MG TABLET PO SCH (17:00)
[2024-11-02] MEDS: VALPROIC ACID 250 MG/5 ML LIQUID UDC PO SCH ×2 (17:36→20:22)
[2024-11-02] MEDS: risperiDONE 2 MG TABLET PO SCH (20:22)
[2024-11-02] MEDS ORDERED: DEXTROSE 50% 50 ML DISP.SYRIN IV PRN (21:00)
[2024-11-02] MEDS: BLOOD SUGAR DIAGNOSTIC 1 EACH STRIP VI SCH (21:15)
[2024-11-02] MEDS: INSULIN REGULAR, HUMAN 1000 UNIT/10 ML VIAL SQ PRN (21:16)
[2024-11-03 05:55] VITALS: BP 108/74; TEMP 97.8; O2SAT 100
[2024-11-03 06:47] LABS: BASOPHILS % (AUTO) 0.8 % (0.0-2.0); EOSINOPHILS # (AUTO) 0.1 K/uL (0.0-0.7); EOSINOPHILS % (AUTO) 2.1 % (0.0-7.0); HEMATOCRIT 43.6 % (36.7-47.1); HEMOGLOBIN 14.5 g/dL (12.5-16.3); LYMPHOCYTES # (AUTO) 1.5 K/uL (0.8-4.8); LYMPHOCYTES % (AUTO) 25.5 % (20.5-51.5); MEAN CORPUSCULAR HEMOGLOBIN 29.6 uug (23.8-33.4); MEAN CORPUSCULAR HGB CONC 33 g/dL (32.5-36.3); MEAN CORPUSCULAR VOLUME 89.1 fL (73.0-96.2); MONOCYTES # (AUTO) 0.5 K/uL (0.1-1.30); MONOCYTES % (AUTO) 9.5 % (0.0-11.0); NEUTROPHILS # (AUTO) 3.6 K/uL (1.8-8.9); NEUTROPHILS % (AUTO) 62.1 % (38.5-71.5); PLATELET COUNT (AUTO) 241 K/uL (152-348); RED BLOOD CELL COUNT(AUTO) 4.89 MIL/uL (4.06-5.63); RED CELL DISTRIBUTION WIDTH 15.9 % (12.1-16.2); WHITE BLOOD COUNT (AUTO) 5.8 K/uL (3.6-10.2)
[2024-11-03 06:58] LABS: DIFFERENTIAL COMMENT 1
[2024-11-03 07:13] LABS: ALBUMIN 3.1 g/dL (3.4-5.0); BILIRUBIN,TOTAL 0.5 mg/dL (0.2-1.0); CALCIUM 9.1 mg/dL (8.5-10.1); MAGNESIUM 1.9 mg/dL (1.8-2.4); PHOSPHOROUS 4.3 mg/dL (2.5-4.9); POTASSIUM 4.9 mmol/L (3.5-5.1); TOTAL PROTEIN, SERUM 6.5 g/dL (6.4-8.2)
[2024-11-03] MEDS: risperiDONE 2 MG TABLET PO SCH (08:18)
[2024-11-03] MEDS: FUROSEMIDE 20 MG/2 ML VIAL IV SCH (08:26)
[2024-11-03 08:34] VITALS: BP 106/60; TEMP 97.9; O2SAT 99
[2024-11-03 11:46] VITALS: BP 107/70; TEMP 97.7; O2SAT 96
[2024-11-03] MEDS: OLANZAPINE 10 MG VIAL IM ONE (14:37)
[2024-11-03] MEDS: METOPROLOL TARTRATE 25 MG TABLET PO SCH (15:35)
[2024-11-03 15:38] VITALS: BP 116/53; TEMP 97.7; O2SAT 97
[2024-11-03] MEDS: VALPROIC ACID 250 MG CAPSULE PO SCH (16:00)
[2024-11-03] MEDS ORDERED: risperiDONE 2 MG TABLET PO SCH (17:07)
[2024-11-03 19:00] VITALS: BP 106/77; TEMP 98.4; O2SAT 98
[2024-11-04] VITALS: BP 103/61; TEMP 98.3; O2SAT 98
[2024-11-04 04:00] VITALS: BP 101/65; TEMP 98; O2SAT 99
[2024-11-04 07:34] VITALS: BP 117/74; TEMP 98; O2SAT 97
[2024-11-04] MEDS: VALPROIC ACID 250 MG/5 ML LIQUID UDC PO SCH (08:20)
[2024-11-04] MEDS: risperiDONE 2 MG TABLET PO SCH (08:27)
[2024-11-04 11:10] VITALS: BP 114/72; TEMP 98.5; O2SAT 95
[2024-11-04] MEDS: LORAZEPAM 1 MG TABLET PO PRN (11:44)
[2024-11-04 15:35] VITALS: BP 99/69; TEMP 98.7; O2SAT 95
[2024-11-04 19:49] VITALS: BP 94/62; TEMP 97.5; O2SAT 97
[2024-11-05 04:51] VITALS: BP 104/69; TEMP 97.6; O2SAT 96
[2024-11-05] MEDS: GLIMEPIRIDE 2 MG TABLET PO SCH (08:20)
[2024-11-05] MEDS: OLANZAPINE 10 MG VIAL IM ONE (11:14)
[2024-11-05 12:00] VITALS: BP 106/79; TEMP 97.7; O2SAT 97
[2024-11-05] MEDS ORDERED: VALP250S22 PO (15:57)
[2024-11-05] MEDS ORDERED: INSU100V28 SQ (15:57)
[2024-11-05] MEDS ORDERED: FLUT1BLS INH (15:57)
[2024-11-05] MEDS ORDERED: METO25TA6 PO (15:57)
[2024-11-05] MEDS ORDERED: NICO-780 TD (15:57)
[2024-11-05] MEDS ORDERED: RISP2TAB5 PO ×2 (15:57)
[2024-11-05] MEDS ORDERED: LORA-259 PO (15:57)
[2024-11-05] MEDS ORDERED: PANT40TA49 PO (15:57)
[2024-11-05 16:00] VITALS: BP 104/70; TEMP 98.8; O2SAT 99
[2024-11-05] MEDS ORDERED: FURO-152 PO (16:01)
== END 2024-11-05 17:15 | DRG 280 ==
LOC: ER 18:15 → TELE3 22:52 → MEDSURG3 11-04 19:01
PROVIDERS: ADMIT Student in an Organized Health Care Education/Training Program; ATTEND Internal Medicine
DX: I11.0 Hypertensive heart disease with heart failure (principal); I50.23 Acute on chronic systolic (congestive) heart failure; I21.A1 Myocardial infarction type 2; M62.82 Rhabdomyolysis; E44.0 Moderate protein-calorie malnutrition; J84.9 Interstitial pulmonary disease, unspecified; G40.909 Epilepsy, unspecified, not intractable, without status epilepticus; K74.60 Unspecified cirrhosis of liver; F25.0 Schizoaffective disorder, bipolar type; F17.210 Nicotine dependence, cigarettes, uncomplicated; Z91.51 Personal history of suicidal behavior; E78.5 Hyperlipidemia, unspecified; I08.1 Rheumatic disorders of both mitral and tricuspid valves; I27.22 Pulmonary hypertension due to left heart disease; J44.89 Other specified chronic obstructive pulmonary disease; E11.65 Type 2 diabetes mellitus with hyperglycemia; Z79.899 Other long term (current) drug therapy; Z79.84 Long term (current) use of oral hypoglycemic drugs; I25.2 Old myocardial infarction; I25.10 Atherosclerotic heart disease of native coronary artery without angina pectoris; I95.1 Orthostatic hypotension; G90.89 Other disorders of autonomic nervous system
CPT/HCPCS: 36415; 70450; 71045; 80164; 83735; 84100; 84443; 84484; 85025; 85730; 93005; 93307; A4606; A4663; G0378; G0480; J1650; J1815; J1938; J1956; J2358

== ENCOUNTER 2024-11-05 17:27 | Inpatient (IN) | payer MEDICARE, OTHER ==
[~2024-11-05] VITALS: Ht 172.7 cm; Wt 64.0 kg
[~2024-11-05 17:27] MED LIST changes: +ALBU2.5V38 NEB; +ASPI-1101 PO; -ASPI81TA31 PO; -ATOR10TA PO; +BISA10SU61 RC; +DEXT15SY3 PO; -FERR-56 PO; +FLUT1BLS INH; +FURO-152 PO; +GLUC1KIT IM; +INSU100V28 SQ; +INSU100V7 SQ; +IPRA0.2S48 NEB; +LACT10SO58 PO; +MAG355OR18 PO; +METO25TA6 PO; -MIDO5TAB4 PO; +MIDO5TAB5 PO; -MULT-1045 PO; +NA P133E RC; +NICO-780 TD; -NUTR1PAC14 PO; +ONDA4TAB5 PO; +PANT40TA49 PO; +QUET100T PO
[2024-11-05] MEDS: BLOOD SUGAR DIAGNOSTIC 1 EACH STRIP VI ONE (18:45)
[2024-11-05] MEDS ORDERED: IPRATROPIUM BROMIDE 0.5 MG/2.5 ML NEBU NEB PRN (19:15)
[2024-11-05] MEDS ORDERED: BISACODYL 10 MG SUPP.RECT RC PRN (19:15)
[2024-11-05] MEDS ORDERED: ACETAMINOPHEN 325 MG TABLET-SA PATIENTS-PAIN ONLY PO PRN (19:15)
[2024-11-05] MEDS ORDERED: MAGNESIUM HYDROXIDE 30 ML LIQUID UDC PO PRN (19:15)
[2024-11-05] MEDS ORDERED: LORAZEPAM 1 MG TABLET PO PRN ×2 (19:15→21:45)
[2024-11-05] MEDS ORDERED: INSULIN REGULAR, HUMAN 1000 UNIT/10 ML VIAL SQ PRN (19:15)
[2024-11-05] MEDS ORDERED: ALBUTEROL SULFATE 2.5 MG/3 ML NEBU NEB PRN (19:15)
[2024-11-05] MEDS ORDERED: DEXTROMETHORPHAN HBR PO PRN (19:15)
[2024-11-05] MEDS ORDERED: MIDODRINE HCL 5 MG TABLET PO PRN (19:15)
[2024-11-05] MEDS ORDERED: FLEET ENEMA 133 ML BOTTLE RC PRN (19:15)
[2024-11-05] MEDS ORDERED: DEXTROSE 50% 50 ML DISP.SYRIN IV PRN ×2 (19:15→19:30)
[2024-11-05 20:00] VITALS: BP 109/76; TEMP 98; O2SAT 98
[2024-11-05] MEDS: BLOOD SUGAR DIAGNOSTIC 1 EACH STRIP VI SCH (20:06)
[2024-11-05] MEDS: INSULIN REGULAR, HUMAN 1000 UNIT/10 ML VIAL SQ PRN (20:10)
[2024-11-05] MEDS: METOPROLOL TARTRATE 25 MG TABLET PO SCH (20:44)
[2024-11-05] MEDS ORDERED: ACETAMINOPHEN 325 MG TABLET PO PRN (20:45)
[2024-11-05] MEDS ORDERED: VALPROIC ACID 250 MG/5 ML LIQUID UDC PO SCH (21:00)
[2024-11-05] MEDS: TEMAZEPAM 7.5 MG CAPSULE PO PRN (22:09)
[2024-11-06] MEDS: PANTOPRAZOLE SODIUM 40 MG TABLET.DR PO SCH (06:48)
[2024-11-06] MEDS ORDERED: GUAIFENESIN/DEXTROMETHORPHAN 5 ML UDC PO PRN (07:30)
[2024-11-06] MEDS: GLIMEPIRIDE 2 MG TABLET PO SCH (08:00)
[2024-11-06 08:11] LABS: ASPARTATE AMINOTRANSFERASE 22.0 U/L (15-37); CREATININE 1.0 mg/dL (0.6-1.3); SODIUM SERUM 139.0 mmol/L (136-145); TOTAL PROTEIN, SERUM 7.3 g/dL (6.4-8.2); UREA NITROGEN, BLOOD 22.0 mg/dL (7-18)
[2024-11-06] MEDS: LACTULOSE 20 G/30 ML LIQUID UDC PO SCH (08:39)
[2024-11-06] MEDS: FUROSEMIDE 20 MG TABLET PO SCH (08:39)
[2024-11-06] MEDS: ASPIRIN EC 81 MG TABLET.DR PO SCH (08:39)
[2024-11-06] MEDS: MULTIVITAMINS,THERAPEUTIC TABLET PO SCH (08:39)
[2024-11-06] MEDS: NICOTINE 21 MG/24HR PATCH TD SCH (08:39)
[2024-11-06] MEDS: FLUTICASONE/VILANTEROL 1 EACH BLST.W.DEV INH SCH (08:44)
[2024-11-06] MEDS ORDERED: VALPROIC ACID 250 MG/5 ML LIQUID UDC PO SCH (09:00)
[2024-11-06 09:07] VITALS: BP 114/82; TEMP 98.2; O2SAT 98
[2024-11-06] MEDS: OLANZAPINE 10 MG VIAL IM ONE (12:25)
[2024-11-06] MEDS: DIVALPROEX 500 MG TABLET.DR PO SCH ×2 (13:37→21:00)
[2024-11-06 15:15] VITALS: BP 131/65; TEMP 98; O2SAT 93
[2024-11-06 20:00] VITALS: BP 92/62; TEMP 97.7; O2SAT 97
[2024-11-07 08:48] VITALS: BP 99/66; TEMP 98.6; O2SAT 96
[2024-11-07 16:21] VITALS: BP 104/76; TEMP 98; O2SAT 98
[2024-11-07 20:00] VITALS: BP 109/78; TEMP 97.5; O2SAT 97
[2024-11-07] MEDS: LORAZEPAM 1 MG TABLET PO PRN (20:23)
[2024-11-08 08:50] VITALS: BP 114/65; TEMP 98; O2SAT 96
[2024-11-08 16:10] VITALS: BP 119/72; TEMP 98.3; O2SAT 99
[2024-11-08 20:22] VITALS: BP 101/65; TEMP 98.1; O2SAT 96
[2024-11-09 08:55] VITALS: BP 105/74; TEMP 98; O2SAT 96
[2024-11-09 16:30] VITALS: BP 126/83; TEMP 98.3; O2SAT 99
[2024-11-09 20:00] VITALS: BP 121/80; TEMP 97.8; O2SAT 98
[2024-11-10 08:20] VITALS: BP 104/76; TEMP 97.7; O2SAT 98
[2024-11-10 16:48] VITALS: BP 111/74; TEMP 97; O2SAT 98
[2024-11-10 20:00] VITALS: BP 120/79; TEMP 97.6; O2SAT 100
[2024-11-11 07:35] VITALS: BP 94/57; TEMP 97.8; O2SAT 98
[2024-11-11 20:00] VITALS: BP 108/70; TEMP 97.6; O2SAT 99
[2024-11-12 08:00] VITALS: BP_SYST 133; BP_SYST 155; BP_DIAS 75; BP_DIAS 81; TEMP 97.4; TEMP 97.7; O2SAT 98
[2024-11-12 17:45] VITALS: BP 128/76; TEMP 97.6; O2SAT 98
[2024-11-12 20:00] VITALS: BP 106/73; TEMP 97.4; O2SAT 98
[2024-11-13 07:45] VITALS: BP 99/67; TEMP 97.8; O2SAT 98
[2024-11-13] MEDS: OLANZAPINE 2.5 MG TABLET PO SCH (08:07)
[2024-11-13 16:18] VITALS: BP 94/55; TEMP 97.8; O2SAT 98
[2024-11-13 20:00] VITALS: BP 103/75; TEMP 97.7; O2SAT 98
[2024-11-14 20:02] VITALS: BP 106/64; TEMP 97.9; O2SAT 95
[2024-11-15 16:22] VITALS: BP 109/66; TEMP 97.9; O2SAT 95
[2024-11-15 19:45] VITALS: BP 107/63; TEMP 98.1; O2SAT 99
[2024-11-16 07:21] LABS: PLATELET COUNT (AUTO) 214 K/uL (152-348); RED BLOOD CELL COUNT(AUTO) 5.38 MIL/uL (4.06-5.63); RED CELL DISTRIBUTION WIDTH 16.3 % (12.1-16.2); WHITE BLOOD COUNT (AUTO) 7.8 K/uL (3.6-10.2)
[2024-11-16 07:41] LABS: ASPARTATE AMINOTRANSFERASE 11.0 U/L (15-37); CREATININE 1.0 mg/dL (0.6-1.3); SODIUM SERUM 140.0 mmol/L (136-145); TOTAL PROTEIN, SERUM 7.5 g/dL (6.4-8.2); UREA NITROGEN, BLOOD 31.0 mg/dL (7-18); VALPROIC ACID 62.0 ug/mL (50-100)
[2024-11-16 08:35] VITALS: BP 107/64; TEMP 97.9; O2SAT 95
== END 2024-11-16 11:15 | DRG 885 ==
LOC: GPS 17:27
PROVIDERS: ADMIT Psychiatry & Neurology Psychosomatic Medicine; ATTEND Internal Medicine
DX: F25.0 Schizoaffective disorder, bipolar type (principal); N18.9 Chronic kidney disease, unspecified; E11.65 Type 2 diabetes mellitus with hyperglycemia; I50.23 Acute on chronic systolic (congestive) heart failure; E44.0 Moderate protein-calorie malnutrition; J84.9 Interstitial pulmonary disease, unspecified; I13.0 Hypertensive heart and chronic kidney disease with heart failure and stage 1 through stage 4 chronic kidney disease, or unspecified chronic kidney disease; Z91.51 Personal history of suicidal behavior; G40.909 Epilepsy, unspecified, not intractable, without status epilepticus; E78.5 Hyperlipidemia, unspecified; J44.9 Chronic obstructive pulmonary disease, unspecified; I25.2 Old myocardial infarction; F19.10 Other psychoactive substance abuse, uncomplicated; I95.1 Orthostatic hypotension; G90.89 Other disorders of autonomic nervous system; F10.11 Alcohol abuse, in remission; I27.22 Pulmonary hypertension due to left heart disease; I08.1 Rheumatic disorders of both mitral and tricuspid valves; I25.10 Atherosclerotic heart disease of native coronary artery without angina pectoris; F17.210 Nicotine dependence, cigarettes, uncomplicated; E11.22 Type 2 diabetes mellitus with diabetic chronic kidney disease; Z87.19 Personal history of other diseases of the digestive system
CPT/HCPCS: 36415; 76705; 80164; 85025; J1815; J2358